=== PATIENT | female | born 1965 | race Two or more races ===

== ENCOUNTER 2017-04-26 07:21 | Day surgery (SDC) | payer MEDICARE, MEDICAID ==
[2017-04-26] MEDS ORDERED: Lactated Ringer's 1,000 ML IV ONE (08:17)
[2017-04-26 08:29] VITALS: TEMP 98.1
[2017-04-26] MEDS ORDERED: Midazolam 2 MG/2 ML VIAL ONE (09:12)
[2017-04-26] MEDS ORDERED: Propofol 10 mg/ml Inj (20 ML) ONE (09:12)
[2017-04-26 09:41] VITALS: O2SAT 100
[2017-04-26 09:56] VITALS: BP 100/60; PULSE 84; RESP 17
== END 2017-04-26 10:05 | disposition home or self-care (01) ==
LOC: H.ENDO 07:21
PROVIDERS: ATTEND Internal Medicine Gastroenterology
DX: Z12.11 Encounter for screening for malignant neoplasm of colon (principal); K64.8 Other hemorrhoids; K22.8 Other specified diseases of esophagus; K21.9 Gastro-esophageal reflux disease without esophagitis; K29.50 Unspecified chronic gastritis without bleeding
CPT/HCPCS: 43239; 45378; 88173; 88305; 88342; J2250; J2704; J7120

== ENCOUNTER 2017-06-12 04:44 | Emergency (ER) | payer MEDICARE, MEDICAID ==
[2017-06-12 04:44] VITALS: BMI 26.5
[2017-06-12 04:56] VITALS: RESP 18; O2SAT 100
[2017-06-12] MEDS ORDERED: Sodium Chloride 0.9% 1,000 ML IV STA (05:06)
--- NOTE | 2017-06-12 05:18 | ED PDOC ---
HPI: Abdomen Time Seen by Provider: 06/12/17 04:50 Chief Complaint (Nursing): Abdominal Pain Chief Complaint (Provider): abdominal pain, vomiting and diarrhea History Per: Patient History/Exam Limitations: no limitations Onset/Duration Of Symptoms: Days (2 days ago) Current Symptoms Are (Timing): Still Present Location Of Pain/Discomfort: Epigastric, LUQ Additional Complaint(s): 51 yo female with a history of gastritis and chronic back pain, presents to the ED complaining of worsened abdominal pain, vomiting, and diarrhea, onset of 2 days ago. Patient reports of multiple episodes of non-bloody, non-bilious vomiting and multiple episodes of diarrhea. Of note, patient was seen in this ED around May, where she had a CT scan done, which came back negative, but her endoscopy showed that she had gastritis. Deepti was also seen present in the esophagus, but the patient states that she has already been treated for it. She denies dizziness, chest pain, fevers, or dysuria. PCP: Ramón Justin Past Medical History Reviewed: Historical Data, Nursing Documentation, Vital Signs Vital Signs: Last Vital Signs Temp 97.8 F 06/12/17 05:56 Pulse 76 06/12/17 05:56 Resp 18 06/12/17 05:56 BP 121/78 06/12/17 05:56 Pulse Ox 100 06/12/17 06:50 - Medical History PMH: Hypercholesterolemia, Chronic Pain (back pain) Denies: Chronic Kidney Disease Other PMH: gastritis - Surgical History Surgical History: Endoscopy Other surgeries: colonoscopy - Family History Family History: States: Unknown Family Hx - Social History Current smoker - smoking cessation education provided: No Ex-Smoker (has not smoked in the last 12 months): No Alcohol: None Drugs: Denies - Home Medications Home Medications: Ambulatory Orders Medication Instructions Recorded Famotidine [Pepcid] 20 mg PO DAILY 04/26/17 Simvastatin [Zocor] 40 mg PO DAILY 04/26/17 Dicyclomine [Dicyclomine HCl] 10 mg PO TID PRN #12 cap 06/12/17 Ondansetron ODT [Zofran ODT] 4 mg PO Q8 PRN #12 odt 06/12/17 - Allergies Allergies/Adverse Reactions: Allergies Allergy/AdvReac Type Severity Reaction Status Date / Time No Known Allergies Allergy Verified 04/26/17 08:25 Review of Systems ROS Statement: Except As Marked, All Systems Reviewed And Found Negative Constitutional: Negative for: Fever Cardiovascular: Negative for: Chest Pain Gastrointestinal: Positive for: Vomiting, Abdominal Pain (epigastric and luq), Diarrhea Genitourinary Female: Negative for: Dysuria Neurological: Negative for: Dizziness Physical Exam - Reviewed Nursing Documentation Reviewed: Yes Vital Signs Reviewed: Yes - Physical Exam Appears: Positive for: Uncomfortable Head Exam: Positive for: ATRAUMATIC, NORMAL INSPECTION, NORMOCEPHALIC Skin: Positive for: Normal Color, Warm, DRY Eye Exam: Positive for: EOMI, Normal appearance, PERRL ENT: Positive for: Normal ENT Inspection Neck: Positive for: Normal, Painless ROM Cardiovascular/Chest: Positive for: Regular Rate, Rhythm. Negative for: Murmur Respiratory: Positive for: Normal Breath Sounds. Negative for: Respiratory Distress Gastrointestinal/Abdominal: Positive for: Normal Exam, Soft, Tenderness ( epigastric and LUQ tenderness) Back: Positive for: Normal Inspection Extremity: Positive for: Normal ROM. Negative for: Pedal Edema, Deformity Neurologic/Psych: Positive for: Alert, Oriented. Negative for: Motor/Sensory Deficits - Laboratory Results Result Diagrams: 06/12/17 05:33 06/12/17 05:33 - ECG O2 Sat by Pulse Oximetry: 100 (RA) Pulse Ox Interpretation: Normal - Progress Re-evaluation Time: 06:47 Condition: Re-examined, Improved Medical Decision Making Medical Decision Making: Time: --05:06 Impression: --abdominal pain with vomiting and diarrhea w/ chronic back pain Differential: --gastritis, peptic ulcer disease, pancreatitis, gallbladder disease, gastroenteritis Plan: --Labs --lipase --bentyl 10mg PO --famotidine 20mg IVP --IV fluids --Zofran --IV insertion Reassess -- Scribe Attestation: Documented by Kris Salamanca acting as a scribe for Lucila Cassidy MD. Provider Attestation: All medical record entries made by the Scribe were at my direction and personally dictated by me. I have reviewed the chart and agree that the record accurately reflects my personal performance of the history, physical exam, medical decision making, and the department course for this patient. I have also personally directed, reviewed, and agree with the discharge instructions and disposition. Disposition - Clinical Impression Clinical Impression: Abdominal pain, Vomiting and diarrhea - Patient ED Disposition Is Patient to be Admitted: No Doctor Will See Patient In The: Office Counseled Patient/Family Regarding: Studies Performed, Diagnosis, Need For Followup - Disposition Referrals: Yfn Monte MD [Medical Doctor] - Disposition: Routine/Home Disposition Time: 06:48 Condition: GOOD Additional Instructions: Follow up with your PCP in 2-3 days. Prescriptions: Dicyclomine [Dicyclomine HCl] 10 mg PO TID PRN #12 cap PRN Reason: Diarrhea Ondansetron ODT [Zofran ODT] 4 mg PO Q8 PRN #12 odt PRN Reason: Nausea/Vomiting Instructions: Viral Gastroenteritis Print Language: WELSH - Pt Status Changed To: Hospital Disposition Of: Inpatient - Admit Certification Admit to Inpatient:: After my assessment, the patient will require hospitalization for at least two midnights. This is because of the severity of symptoms shown, intensity of services needed, and/or the medical risk in this patient being treated as an outpatient. - POA Present On Arrival: None
[2017-06-12 05:54] LABS: BASO % 0.3 % (0.0-2.0); EOS # 0.1 K/uL (0.0-0.7); EOS % 0.6 % (0.0-4.0); HEMOGLOBIN 16.2 g/dL (12.0-16.0); LYMPH # 2.3 K/uL (1.0-4.3); LYMPH % 26.2 % (20.0-40.0); MEAN CELL VOLUME 84.6 fl (81.0-99.0); MEAN CORPUSCULAR HEMOGLOBIN 29.1 pg (27.0-31.0); MEAN CORPUSCULAR HGB CONC 34.4 g/dL (33.0-37.0); MEAN PLATELET VOLUME 8.8 fl (7.2-11.7); MONO # 0.6 K/uL (0.0-0.8); MONO % 6.6 % (0.0-10.0); NEUT # 5.8 K/uL (1.8-7.0); NEUT % 66.3 % (50.0-75.0); NRBC % 0.1 % (0.0-0.0); RBC 5.56 Mil/uL (3.80-5.20); RED CELL DISTRIBUTION WIDTH 13.8 % (11.5-14.5); WHITE BLOOD COUNT 8.8 K/uL (4.8-10.8)
[2017-06-12 05:57] VITALS: BP 121/78; PULSE 76; TEMP 97.8
[2017-06-12 06:04] LABS: ALB/GLOB RATIO 1.4 (1.0-2.1); ALBUMIN 4.8 g/dL (3.5-5.0); ALT/SGPT 59 U/L (9-52); AST/SGOT 43 U/L (14-36); BLOOD UREA NITROGEN 12 mg/dl (7-17); CALCIUM 9.9 mg/dL (8.4-10.2); GFR AFRICAN-AMERICAN > 60; GFR NON-AFRICAN AMERICAN > 60; LIPASE 113 U/L (23-300)
[2017-06-12] MEDS ORDERED: Potassium Chloride 20 mEq ER Tab PO ONE ×2 (06:12→06:32)
== END 2017-06-12 07:10 | disposition home or self-care (01) ==
LOC: H.ER 04:44
DX: R10.13 Epigastric pain (principal); R11.10 Vomiting, unspecified; R19.7 Diarrhea, unspecified; E78.00 Pure hypercholesterolemia, unspecified; G89.29 Other chronic pain
CPT/HCPCS: 80053; 83690; 85025; 96374; 96375; 99284; J2405; J7040